=== PATIENT | male | born 1940 | race Caucasian/White ===

== ENCOUNTER 2018-07-12 10:49 | Emergency (ER) | payer MEDICARE ==
[2018-07-12 11:03] VITALS: BP 152/87
--- NOTE | 2018-07-12 11:27 | ED ---
Upper Extremity Pain - HPI Summary HPI Summary: Patient presents with right shoulder pain and weakness since an injury 2 months ago. He reports he was holding a worse lead when his arm got jerked behind him. 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 He's still unable to abduct and flex the shoulder past 70. He also prefers to lie on this side at night however he is unable to due to discomfort. Denies numbness or tingling. 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 Has taken ibuprofen a few times to help with pain but otherwise he goes about his daily routine, hindered only by lack of movement in the shoulder as mentioned. - History of Current Complaint Chief Complaint: UCUpperExtremity Stated Complaint: SHOULDER INJURY Time Seen by Provider: 07/12/18 11:15 Hx Obtained From: Patient - Allergies/Home Medications Allergies/Adverse Reactions: Allergies Allergy/AdvReac Type Severity Reaction Status Date / Time No Known Allergies Allergy Verified 07/12/18 11:03 PMH/Surg Hx/FS Hx/Imm Hx Previously Healthy: Yes Endocrine/Hematology History: Denies: Hx Anticoagulant Therapy, Hx Blood Disorders - Surgical History Surgery Procedure, Year, and Place: Hernia repair x 2, Hemorrhoidectomy Infectious Disease History: No Infectious Disease History: Denies: History Other Infectious Disease, Traveled Outside the [place] in Last 30 Days - Social History Occupation: Retired - but still farms land Lives: With Family Alcohol Use: Occasionally Hx Substance Use: No Substance Use Type: Reports: None Hx Tobacco Use: No Smoking Status (MU): Never Smoked Tobacco Review of Systems Constitutional: Negative Negative: Fatigue Cardiovascular: Negative Respiratory: Negative Positive: Arthralgia, Decreased ROM. Negative: Myalgia, Edema Skin: Negative Positive: Weakness. Negative: Paresthesia, Numbness Psychological: Normal All Other Systems Reviewed And Are Negative: Yes Physical Exam Triage Information Reviewed: Yes Vital Signs On Initial Exam: Initial Vitals Temp Pulse Resp BP Pulse Ox 97.4 F 53 18 152/87 97 07/12/18 11:00 07/12/18 11:00 07/12/18 11:00 07/12/18 11:00 07/12/18 11:00 Vital Signs Reviewed: Yes Appearance: Positive: Well-Appearing, No Pain Distress, Well-Nourished Skin: Positive: Warm, Skin Color Reflects Adequate Perfusion, Dry - no erythema , no edema, no lesions over affected Head/Face: Positive: Normal Head/Face Inspection Eyes: Positive: EOMI ENT: Positive: Hearing grossly normal Respiratory/Lung Sounds: Positive: Breath Sounds Present Cardiovascular: Positive: Pulses are Symmetrical in both Upper and Lower Extremities - no UE edema Musculoskeletal: Positive: Limited @ - limited abduction/flexion of Rt shoulder - can move to 70 degrees - FROM elbow, wrist and allocation analyst, Pain @ - mild TTP over posterior shoulder muscle - bones are NTTP Neurological: Positive: Normal, Sensory/Motor Intact, Alert, Oriented to Person Place, Time, CN Intact II-III, Reflexes Intact Psychiatric: Positive: Normal Diagnostics - Vital Signs Vital Signs Temp Pulse Resp BP Pulse Ox 07/12/18 11:00 97.4 F 53 18 152/87 97 - Laboratory Lab Statement: Any lab studies that have been ordered have been reviewed, and results considered in the medical decision making process. Course/Dx - Course Course Of Treatment: Suspect rotator cuff injury, most likely tear. Pain is well controlled with ibuprofen as needed. XR reveals not acute findings. Suggest f/u w/ orthopedic speciaist. Pt agrees w/ plan. - Diagnoses Provider Diagnoses: Other injury of muscle(s) and tendon(s) of the rotator cuff of right shoulder, initial encounter Discharge - Sign-Out/Discharge Documenting (check all that apply): Patient Departure All imaging exams completed and their final reports reviewed: Yes - Discharge Plan Condition: Stable Disposition: HOME Patient Education Materials: Rotator Cuff Injury (ED) Referrals: Dulce Anderson MD [Medical Doctor] - Additional Instructions: You appear to have a rotator cuff injury. You may ice and take ibuprofen as needed for pain/swelling Try to continue to move as long as you do not induce pain - this will reduce risk of frozen shoulder and aid in healing If arm is painful, you may use sling to support the shoulder Follow-up with social insurance specialist for further assessment and treatment. Call today to schedule an appointment. *If you develop numbness, tingling or change in your skin color or swelling, go to ED - Billing Disposition and Condition Condition: STABLE Disposition: Home
--- NOTE | 2018-07-12 11:55 | RAD ---
INDICATION: Shoulder pain since injury 2 months earlier COMPARISON: None. TECHNIQUE: 4 views of the right shoulder were obtained. FINDINGS: The adequately corticated bones are in normal alignment. Joint spaces appear maintained. No fracture, dislocation or focal bony abnormality is seen. IMPRESSION: Normal radiograph of the right shoulder. If the patient's symptoms persist, follow-up imaging is recommended.
== END 2018-07-12 12:20 | disposition home or self-care (01) ==
LOC: UCEAST 10:49
DX: S46.001A Unspecified injury of muscle(s) and tendon(s) of the rotator cuff of right shoulder, initial encounter (principal); X50.0XXA Overexertion from strenuous movement or load, initial encounter; Y93.K1 Activity, walking an animal; Y92.9 Unspecified place or not applicable
CPT/HCPCS: 99211; G0463

== ENCOUNTER 2020-03-05 14:08 | Emergency (ER) | payer MEDICARE ==
[2020-03-05 14:29] VITALS: BP 145/88
--- NOTE | 2020-03-05 14:33 | UC ---
Knee Pain HPI - HPI Summary HPI Summary: 79-year-old male comes in with a chief complaint of right knee pain. Started week and half ago. Feels pain in the front of the knee and the back of the knee. Pain got worse 3 days ago when he slipped and fell twisting his knee and causing increased anterior knee pain. Does have some pain goes into the right calf. No complaint of any weakness or numbness. Pain is worse with weightbearing. Pain is better with rest. - History of Current Complaint Chief Complaint: UCLowerExtremity Stated Complaint: KNEE INJURY Time Seen by Provider: 03/05/20 14:19 Pain Intensity: 3 - Allergies/Home Medications Allergies/Adverse Reactions: Allergies Allergy/AdvReac Type Severity Reaction Status Date / Time No Known Allergies Allergy Verified 03/05/20 14:16 Home Medications: Home Medications Ibuprofen TAB* [Advil TAB*] 200 mg PO Q6H PRN 08/04/15 [History Confirmed ] PMH/Surg Hx/FS Hx/Imm Hx Previously Healthy: Yes Other History Of: Negative For: Anticoagulant Therapy - Surgical History Surgical History: Yes Surgery Procedure, Year, and Place: Hernia repair x 2, Hemorrhoidectomy - Family History Known Family History: Positive: Non-Contributory - Social History Alcohol Use: Rare Substance Use Type: None Smoking Status (MU): Never Smoked Tobacco Review of Systems All Other Systems Reviewed And Are Negative: Yes Constitutional: Positive: Negative Skin: Positive: Negative Eyes: Positive: Negative ENT: Positive: Negative Respiratory: Positive: Negative Cardiovascular: Positive: Negative Motor: Positive: Negative Neurovascular: Positive: Negative Musculoskeletal: Positive: Other: - see hpi Neurological/Mental Status: Positive: Negative Psychological: Positive: Negative Is Patient Immunocompromised?: No Physical Exam Triage Information Reviewed: Yes Appearance: Well-Appearing, No Pain Distress, Well-Nourished Vital Signs: Initial Vital Signs Temp 99 F 03/05/20 14:28 Pulse 71 03/05/20 14:28 Resp 18 03/05/20 14:28 BP 145/88 03/05/20 14:28 Pulse Ox 96 03/05/20 14:28 Vital Signs Reviewed: Yes Eye Exam: Normal Eyes: Positive: Conjunctiva Clear Neck: Positive: Supple Respiratory: Positive: No respiratory distress Musculoskeletal: Positive: Strength Intact, ROM Intact, Other: - Right knee is tender to palpation on the medial aspect of the patella. Also tenderness to palpation in the popliteal. Mild tenderness in the upper calf. No tenderness in the lateral aspects. Marina's is negative. Knee is stable to exam. Neurological: Positive: Alert Psychological: Positive: Age Appropriate Behavior Skin Exam: Normal Knee Pain Course/Dx - Course Course Of Treatment: Work From Home: Robinson Norman Daniel, ([id number]) Irrigationist: ELLEN (MAUANCE) Report Date: 03/05/2020 14:58:00 Report Status: Final Start of Report Content ===== Patient Name: CHARITY MAJOR Ordering Physician: Jose Montenegro MD : 1940 Age: 79 Sex: M Location: [facility] Exam Date: 03/05/201424 ADM Status: REG ER Order Information: KNEE RIGHT 4+ VWS Accession Number: [id number] CPT: 16831 HISTORY: pain . COMPARISONS: None relevant available at the time of dictation. VIEWS: 4, Frontal, lateral, axial, and oblique views of the right knee FINDINGS : BONE DENSITY: Normal. BONES: There is no displaced fracture. JOINTS: There is mild tricompartmental osteoarthritis. ALIGNMENT: There is no dislocation. SOFT TISSUES: Unremarkable. OTHER FINDINGS: None. IMPRESSION: NO ACUTE OSSEOUS INJURY. IF SYMPTOMS PERSIST, RECOMMEND REPEAT IMAGING. 03/05/201453 Dictated By: Robinson Norman MD Dictated Date/Time: 03/05/201452 Transcribed Date/Time: 03/05/201452 Copy to: CC:Robinson Norman MD; Joshua Nicholson MD; Jose Montenegro MD Imaging - [facility] Imaging - [facility] Imaging - [facility] [id number] [place] [id number] [place] [id number] ph ([phone]) ph ([phone]) ) End of Report Content === Work From Home: Robinson Norman Daniel, ([id number]) Irrigationist: ELLEN ( NUANCE) Report Date: 03/05/2020 15:37:00 Report Status: Final ====== Start of Report Content Patient Name: CHARITY MAJOR Ordering Physician: Jose Montenegro MD : 1940 Age: 79 Sex: M Location: [facility] Exam Date: 03/05/20 1430 ADM Status: REG ER Order Information: VL LOWER EXT VEINS RIGHT Accession Number: [id number] CPT: 56311 HISTORY: pain COMPARISONS: None relevant TECHNIQUE: Multiple transverse and longitudinal ultrasound images were obtained of the right lower extremity from the level of the common femoral vein inferiorly through to the infrapopliteal veins using grayscale, color Doppler, and spectral Doppler imaging with and without compression and with augmentation. Comparison images were obtained of the contralateral common femoral vein. FINDINGS: VEINS: The venous system of the right lower extremity is compressible throughout its course, with normal flow on color Doppler imaging and normal response to augmentation on spectral Doppler imaging. SOFT TISSUES: Unremarkable. OTHER FINDINGS: There is a 7.7 x 4.1 x 4.1 cm fluid collection apophyseal fossa. IMPRESSION: NO RIGHT LOWER EXTREMITY DEEP VEIN THROMBOSIS AHMADI'S CYST. <Electronically signed by Robinson Norman MD in OV> 03/05/201532 Dictated By: Robinson Norman MD Dictated Date/Time: 03/05/201532 Transcribed Date/Time: 03/05/201532 Copy to: CC:Robinson Norman MD; Joshua Nicholson MD; Jose Montenegro MD Imaging - [facility] Imaging - [facility] [address] [place] [address] [address] [address] ph ) ph ([phone]) ([phone]) End of Report Content I discussed the x-rays and the venous Doppler with the patient. Plan is ice, ibuprofen, elevation and rest and follow-up with orthopedics. - Differential Dx/Diagnosis Provider Diagnosis: Right knee pain, Synovial cyst of popliteal space [Ahmadi], right knee Discharge ED - Sign-Out/Discharge Documenting (check all that apply): Patient Departure All imaging exams completed and their final reports reviewed: Yes - Discharge Plan Condition: Stable Disposition: HOME Patient Education Materials: Bakers Cyst (ED), Swollen Knee Joint (ED), Knee Pain (ED) Referrals: Joshua Nicholson MD [Primary Care Provider] - Antoine Mercado MD [Medical Doctor] - Additional Instructions: FOLLOW UP WITH ORTHOPEDICS. Ice elevate and rest your right knee. Use a cane if helpful. Take ibuprofen as directed as needed. GET REEVALUATED IF NOT IMPROVED OR WORSE OR ANY QUESTIONS OR CONCERNS. - Billing Disposition and Condition Condition: STABLE Disposition: Home
== END 2020-03-05 15:50 | disposition home or self-care (01) ==
LOC: UCEAST 14:08
DX: M25.561 Pain in right knee (principal); M79.661 Pain in right lower leg; M71.21 Synovial cyst of popliteal space [Baker], right knee
CPT/HCPCS: 99201; G0463